=== PATIENT | female | born 1975 | race Caucasian/White ===

== ENCOUNTER → 2016-10-03 | Outpatient (CLI) | payer BC | LOC: BHSO 13:13 | DX: F31.81 Bipolar II disorder (principal) ==

== ENCOUNTER → 2016-10-27 | Outpatient (CLI) | payer BC | LOC: BHSO 14:58 | DX: F33.1 Major depressive disorder, recurrent, moderate (principal) ==

== ENCOUNTER → 2016-11-15 | Outpatient (CLI) | payer BC | LOC: BHSO 10:54 | DX: F33.1 Major depressive disorder, recurrent, moderate (principal) ==

== ENCOUNTER → 2016-11-28 | Outpatient (CLI) | payer BC | LOC: BHSO 15:55 | DX: F41.1 Generalized anxiety disorder (principal) ==

== ENCOUNTER → 2016-12-22 | Outpatient (CLI) | payer BC | LOC: BHSO 09:51 | DX: F33.2 Major depressive disorder, recurrent severe without psychotic features (principal) ==

== ENCOUNTER → 2017-01-02 | Outpatient (CLI) | payer BC | LOC: BHSO 12:54 | DX: F33.1 Major depressive disorder, recurrent, moderate (principal) ==

== ENCOUNTER → 2017-04-03 | Outpatient (CLI) | payer BC | LOC: BHSO 09:36 | DX: F31.73 Bipolar disorder, in partial remission, most recent episode manic (principal) ==

== ENCOUNTER → 2017-07-09 | Outpatient (CLI) | payer BC | LOC: BHSO 09:38 | DX: F31.73 Bipolar disorder, in partial remission, most recent episode manic (principal) ==

== ENCOUNTER → 2017-10-08 | Outpatient (CLI) | payer BC | LOC: BHSO 10:30 | DX: F31.81 Bipolar II disorder (principal) | CPT/HCPCS: G0463 ==

== ENCOUNTER 2019-04-22 14:30 | Outpatient (RCR) | payer BC | END 2019-05-28 10:32 | disposition home or self-care (01) | LOC: MKS.ESL.PT 14:30 | DX: M25.571 Pain in right ankle and joints of right foot (principal) ==

== ENCOUNTER → 2022-07-11 | Outpatient (CLI) | payer BC | LOC: MC.RAD 07:34 | DX: Z12.31 Encounter for screening mammogram for malignant neoplasm of breast (principal) ==